=== PATIENT | female | born 1945 | race Caucasian/White ===

== ENCOUNTER → 2019-08-17 15:11 | Outpatient (BNVA) | payer MEDICARE, SELFPAY | PROVIDERS: Family Provider Nurse Practitioner Family; PCP Nurse Practitioner Family; Visit Provider Nurse Practitioner | DX: R60.9 Edema, unspecified (principal); W19.XXXA Unspecified fall, initial encounter | CPT/HCPCS: 73552 ==

== ENCOUNTER 2019-09-04 06:00 | Outpatient (RCR) | payer MEDICARE, SELFPAY | END 2019-09-13 23:59 | disposition home or self-care (01) | LOC: TPT 06:00 | PROVIDERS: Family Provider Nurse Practitioner Family; PCP Nurse Practitioner Family; Referring Provider Nurse Practitioner Family; Visit Provider Nurse Practitioner Family | DX: R26.2 Difficulty in walking, not elsewhere classified (principal) | CPT/HCPCS: 97110; 97116; 97162 ==

== ENCOUNTER 2019-09-14 06:00 | Outpatient (RCR) | payer MEDICARE, SELFPAY | END 2019-10-12 23:59 | disposition home or self-care (01) | LOC: TPT 06:00 | PROVIDERS: Referring Provider Nurse Practitioner Family; Visit Provider Nurse Practitioner Family | DX: R26.2 Difficulty in walking, not elsewhere classified (principal) | CPT/HCPCS: 97110 ==

== ENCOUNTER 2019-09-30 06:00 | Outpatient (RCR) | payer MEDICARE, SELFPAY | END 2019-10-12 23:59 | disposition home or self-care (01) | LOC: TST 06:00 | PROVIDERS: Referring Provider Nurse Practitioner Family; Visit Provider Nurse Practitioner Family | DX: F03.90 Unspecified dementia, unspecified severity, without behavioral disturbance, psychotic disturbance, mood disturbance, and anxiety (principal); R47.01 Aphasia | CPT/HCPCS: 92507; 92523 ==

== ENCOUNTER → 2019-10-08 15:30 | Outpatient (BNVA) | payer MEDICARE, SELFPAY | PROVIDERS: Visit Provider Nurse Practitioner Family | DX: G25.0 Essential tremor (principal); E11.9 Type 2 diabetes mellitus without complications; J32.9 Chronic sinusitis, unspecified; F03.90 Unspecified dementia, unspecified severity, without behavioral disturbance, psychotic disturbance, mood disturbance, and anxiety; R26.2 Difficulty in walking, not elsewhere classified | CPT/HCPCS: 80053; 80061; 82306; 82607; 83036; 84443; 85025 ==

== ENCOUNTER 2019-10-13 06:00 | Outpatient (RCR) | payer MEDICARE, SELFPAY | END 2019-11-12 23:59 | disposition home or self-care (01) | LOC: TST 06:00 | PROVIDERS: Referring Provider Nurse Practitioner Family; Visit Provider Nurse Practitioner Family | DX: F03.90 Unspecified dementia, unspecified severity, without behavioral disturbance, psychotic disturbance, mood disturbance, and anxiety (principal); R47.01 Aphasia | CPT/HCPCS: 92507 ==

== ENCOUNTER → 2019-10-31 14:04 | Outpatient (BNVA) | payer MEDICARE, SELFPAY | PROVIDERS: Visit Provider Nurse Practitioner Family | DX: D64.9 Anemia, unspecified (principal) | CPT/HCPCS: 82272 ==

== ENCOUNTER → 2020-01-16 11:58 | Outpatient (BNVA) | payer MEDICARE, SELFPAY | PROVIDERS: Visit Provider Family Medicine | DX: E11.9 Type 2 diabetes mellitus without complications (principal); I10 Essential (primary) hypertension | CPT/HCPCS: 80053; 80061; 83036 ==

== ENCOUNTER → 2020-01-22 10:00 | Outpatient (BNVA) | payer MEDICARE, SELFPAY | PROVIDERS: Visit Provider Family Medicine | DX: E11.9 Type 2 diabetes mellitus without complications (principal) | CPT/HCPCS: 83036 ==

== ENCOUNTER → 2020-07-14 12:03 | Outpatient (BNVA) | payer MEDICARE, SELFPAY | PROVIDERS: Visit Provider Family Medicine | DX: E11.9 Type 2 diabetes mellitus without complications (principal) | CPT/HCPCS: 80053; 80061; 83036; 85025 ==

== ENCOUNTER → 2021-01-19 13:33 | Outpatient (BNVA) | payer MEDICARE, SELFPAY | PROVIDERS: Visit Provider Family Medicine | DX: E11.9 Type 2 diabetes mellitus without complications (principal); F03.90 Unspecified dementia, unspecified severity, without behavioral disturbance, psychotic disturbance, mood disturbance, and anxiety; I10 Essential (primary) hypertension | CPT/HCPCS: 80053; 80061; 83036; 84443 ==